=== PATIENT | female | born 1945 | race Caucasian/White ===

== ENCOUNTER 2019-02-10 07:18 | Day surgery (SDC) | payer MEDICARE ==
[~2019-02-10] VITALS: Ht 165.1 cm; Wt 77.1 kg
[~2019-02-10 07:18] MED LIST: AMLO5TAB9 PO; ATOR40TA71 PO; BUDE3CAP7 PO; CETI10TA86 PO; CREON; DEXL60CA3 PO; ESTROPIPATE; FURO20TA4 PO; IBUP-2077 PO; LABE200T5 PO; LIDOCAINE PATCH TP; LISI40TA4 PO; MONT10TA21 PO; OMEGA3 PO; POTA10CA44 PO; SODIUM CHLORIDE 0.9% 1000ML 1,000 ML IV ONE; SUMA20SP6 NS; TOPI25TA48 PO; TRAM50TA4 PO; VOLTAREN TP
[2019-02-10 07:46] VITALS: BP 125/52
[2019-02-10 07:47] LABS: BASOPHILS % (AUTO) 0.9 % (0.0-5.0); EOSINOPHILS % (AUTO) 5.5 % (0.0-8.0); HEMATOCRIT 43.3 % (36-48); LYMPHOCYTES % (AUTO) 24.8 % (21.0-51.0); MEAN CORPUSCULAR HGB CONC 34.1 g/dL (32.0-36.0); MEAN CORPUSCULAR VOLUME 93.8 fL (79-99); MONOCYTES % (AUTO) 8.2 % (3.0-13.0); NEUTROPHILS % (AUTO) 60.6 % (40.0-77.0); PLATELET COUNT (AUTO) 226 K/uL (130-400); RED BLOOD CELL COUNT(AUTO) 4.62 MIL/uL (4.00-5.50); RED CELL DISTRIBUTION WIDTH 13.1 % (11.0-15.5); WHITE BLOOD COUNT (AUTO) 5.6 K/uL (4.8-10.8)
[2019-02-10 07:57] LABS: INR 0.94 (0.85-1.15); PROTHROMBIN TIME 9.9 SEC (9.6-11.6)
[2019-02-10 10:05] VITALS: BP 103/43
[2019-02-10 10:10] VITALS: BP 103/46
[2019-02-10 10:15] VITALS: BP 104/41
[2019-02-10 10:20] VITALS: BP 123/45
== END 2019-02-10 10:37 | disposition home or self-care (01) ==
LOC: DAH 07:18 → ENDO 07:18
PROVIDERS: ATTEND Internal Medicine
DX: K29.80 Duodenitis without bleeding (principal); K44.9 Diaphragmatic hernia without obstruction or gangrene; F41.9 Anxiety disorder, unspecified; F40.240 Claustrophobia; K31.89 Other diseases of stomach and duodenum; M19.90 Unspecified osteoarthritis, unspecified site; M81.0 Age-related osteoporosis without current pathological fracture; K21.9 Gastro-esophageal reflux disease without esophagitis; I10 Essential (primary) hypertension; E78.5 Hyperlipidemia, unspecified; M85.80 Other specified disorders of bone density and structure, unspecified site; Z88.8 Allergy status to other drugs, medicaments and biological substances; Z88.2 Allergy status to sulfonamides; Z88.1 Allergy status to other antibiotic agents; Z79.899 Other long term (current) drug therapy; Z90.710 Acquired absence of both cervix and uterus; Z98.49 Cataract extraction status, unspecified eye; Z72.89 Other problems related to lifestyle; Z98.890 Other specified postprocedural states; Z82.49 Family history of ischemic heart disease and other diseases of the circulatory system
CPT/HCPCS: 36415; 43237; 43239; 85025; 85610; 88305; A4215; A4221; A4222; A4223; A4606; A4620; A4663; J7030